=== PATIENT | female | born 1945 | race Caucasian/White ===

== ENCOUNTER 2020-10-24 09:00 | Emergency (ER) | payer MEDICARE, BC ==
[~2020-10-24] VITALS: Ht 167.6 cm; Wt 82.0 kg
--- NOTE | 2020-10-24 09:31 | PHYS DOC ---
Past History Past Medical History: Hypothyroid Past Surgical History: Hysterectomy, Other Additional Past Surgical Histo: LEFT FOOT Alcohol Use: None General Adult EDM: Chief Complaint: CHEST PAIN HPI: HPI: Patient is a 75-year-old female coming in for substernal chest pain that she describes as burning. Says the pain started this morning and woke her from sleep about 1:30 AM, patient vomited several times that was nonbloody nonbilious. Says the pain is improving now but worse with taking a deep breath. His pain does not radiate and is not taking thing for the pain. Is she had a headache last night before she went to bed but denies any headache now. Denies any fevers or diarrhea. Denies any past medical history, has family history of heart disease in several numbers. States she just moved here from [facility] 1 month ago and has had some nonproductive cough and difficulty breathing that she attributes to the climate and dryer air. Review of Systems: Review of Systems: All other systems within normal limits except for as noted in the HPI Allergies: Allergies: Allergies Coded Allergies Type Severity Reaction Last Updated Verified No Known Drug Allergies 10/24/20 No Physical Exam: PE: Constitutional: Well developed, well nourished, no acute distress, non-toxic appearance. [] HENT: Normocephalic, atraumatic, bilateral external ears normal, nose normal. [] Eyes: PERRLA, conjunctiva normal, no discharge. [] Neck: No rigidity, supple, no stridor. [] Cardiovascular: Regular rate and rhythm, brisk cap refill, symmetric upper extremity pulses, no murmurs or gallops [] Lungs & Thorax: Non labored symmetric respirations, no tachypnea or respiratory distress, lungs clear to auscultation [] Abdomen: Soft, nondistended, no tenderness or guarding. Skin: Warm, dry, no erythema, no rash. [] Back: Unremarkable Extremities: No deformities, range of motion grossly intact, no lower extremity edema [] Neurologic: Alert and oriented X 3, no focal deficits noted. [] Psychologic: Affect normal, judgement normal, mood normal. [] Current Patient Data: Vital Signs: Vital Signs Date Time Temp Pulse Resp B/P (MAP) Pulse Ox O2 Delivery O2 Flow Rate FiO2 10/24/20 09:15 99.0 101 16 161/91 (114) 97 EKG: EKG: Normal sinus rhythm, heart rate 90 bpm, left axis deviation, left bundle branch block, no ST elevation or depression. [] Radiology/Procedures: Radiology/Procedures: PA and lateral chest. HISTORY: Chest pain PA and lateral views were taken of the chest. Heart is normal in size. There is no pleural effusion. Lungs are free of infiltrates. There are calcified breast implants. There is mild linear scarring or atelectasis in the right upper lung field just above the minor fissure. There is mild scoliosis. IMPRESSION: 1. Mild linear scarring or atelectasis without other infiltrates. [] Heart Score: HEART Score for Chest Pain: HEART Score for Chest Pain Response (Comments) Value History Slighlty/Non-Suspicious 0 ECG Nonspecific Repolarizatio 1 Age > 65 2 Risk Factors No Risk Factors 0 Troponin < Normal Limit 0 Total 3 Risk Factors: Risk Factors: DM, Current or recent (<one month) smoker, HTN, HLP, family history of CAD, obesity. Risk Scores: Score 0 - 3: 2.5% MACE over next 6 weeks - Discharge Home Score 4 - 6: 20.3% MACE over next 6 weeks - Admit for Clinical Observation Score 7 - 10: 72.7% MACE over next 6 weeks - Early Invasive Strategies Course & Med Decision Making: Course & Med Decision Making Pertinent Labs and Imaging studies reviewed. (See chart for details) Symptoms consistent with GERD and reflux likely secondary to the vomiting. Patient did state that she ate just prior to going to bed. Patient declines an acids. Advised patient to picker tender [id number] antacids if symptoms persist. [] Dragon Disclaimer: Dragon Disclaimer: This electronic medical record was generated, in whole or in part, using a voice recognition dictation system. Departure Departure: Impression: Primary Impression: Gastric reflux Additional Impression: Chest pain Disposition: 01 DC HOME SELF CARE/HOMELESS Condition: STABLE Referrals: ESTER MARS MD (PCP) Patient Instructions: Diet for Gastroesophageal Reflux Disease, Adult ELIAS GOODMAN MD Oct 24, 2020 09:31
--- NOTE | 2020-10-24 10:06 | RAD ---
PA and lateral chest. HISTORY: Chest pain PA and lateral views were taken of the chest. Heart is normal in size. There is no pleural effusion. Lungs are free of infiltrates. There are calcified breast implants. There is mild linear scarring or atelectasis in the right upper lung field just above the minor fissure. There is mild scoliosis. IMPRESSION: 1. Mild linear scarring or atelectasis without other infiltrates. Electronically signed by: Conor Crespo MD (10/24/2020 10:04 AM) [id number]
[2020-10-24 10:13] LABS: BASO # 0.1 x10^3/uL (0.0-0.2); BASO % 1 % (0-3); EOS # 0.1 x10^3/uL (0.0-0.7); EOS % 1 % (0-3); HEMATOCRIT 42.1 % (36.0-47.0); HEMOGLOBIN 13.6 g/dL (12.0-15.5); LYMPH # 3.1 x10^3/uL (1.0-4.8); LYMPH % 24 % (24-48); MEAN CORPUSCULAR HEMOGLOBIN 29 pg (25-35); MEAN CORPUSCULAR HGB CONC 32 g/dL (31-37); MEAN CORPUSCULAR VOLUME 89 fL (79-100); MONO # 1.2 x10^3/uL (0.0-1.1); MONO % 9 % (0-9); NEUT # 8.6 x10^3uL (1.8-7.7); NEUT % 66 % (31-73); PLATELET COUNT 247 x10^3/uL (140-400); RED BLOOD COUNT 4.74 x10^6/uL (3.50-5.40)
[2020-10-24 10:22] LABS: CALCIUM 8.7 mg/dL (8.5-10.1); CREATININE 0.9 mg/dL (0.6-1.0); GFR 61.2; POTASSIUM 4.1 mmol/L (3.5-5.1)
[2020-10-24 10:37] LABS: ALBUMIN 3.9 g/dL (3.4-5.0); ALBUMIN/GLOBULIN RATIO 1.1 (1.0-1.7); TOTAL BILIRUBIN 0.6 mg/dL (0.2-1.0); TOTAL PROTEIN 7.6 g/dL (6.4-8.2)
[2020-10-24 10:46] LABS: BACTERIA,URINE 0 /HPF (0-FEW); BILIRUBIN,URINE NEG (NEG); CLARITY,URINE CLEAR; COLOR,URINE YELLOW; GLUCOSE,URINE NEG (NEG); NITRITE,URINE NEG (NEG); SQUAMOUS EPITHELIAL CELL,UR FEW /LPF; UROBILINOGEN,URINE 0.2 mg/dL (0.2 mg/dL); WBC,URINE OCC /HPF (0-4)
[2020-10-24 12:13] VITALS: BP 135/84
--- NOTE | 2020-10-25 06:40 | EKG ---
[address] [address] Test Date: 2020-10-24 Test Time: 09:18:29 Pat Name: SHAYY MELENDEZ Department: Room: Gender: F Housing [employer] Judge: : [id number] Requested By: ELIAS GOODMAN Order Number: [id number] Reading MD: Geovanny Andrade Measurements Intervals [place] Rate: 93 P: 22 KS: 160 QRS: -20 QRSD: 126 T: 116 QT: 400 QTc: 500 Interpretive Statements SINUS RHYTHM LEFTWARD AXIS LEFT BUNDLE BRANCH BLOCK ABNORMAL ECG RI6.02 No previous ECG available for comparison Electronically Signed On 10-25-2020 9:05:56 RN CAMP by Geovanny Andrade
== END 2020-10-24 12:15 | disposition home or self-care (01) ==
LOC: ER 09:00
DX: K21.9 Gastro-esophageal reflux disease without esophagitis (principal); R07.2 Precordial pain; E03.9 Hypothyroidism, unspecified; Z90.710 Acquired absence of both cervix and uterus
CPT/HCPCS: 36415; 71046; 80053; 81001; 83690; 84484; 85025; 85379; 93005; 99284; 99285

== ENCOUNTER 2021-07-21 22:12 | Emergency (ER) | payer MEDICARE, BC ==
[~2021-07-21] VITALS: Ht 167.6 cm; Wt 82.0 kg
--- NOTE | 2021-07-21 22:30 | PHYS DOC ---
Past History Past Medical History: Hypothyroid Past Surgical History: Hysterectomy, Other Additional Past Surgical Histo: LEFT FOOT Alcohol Use: None General Adult EDM: Chief Complaint: NOSEBLEED HPI: HPI: ".. I woke up with this nose bleed.. more here on Rt..." .. " It will not stop...".. " The last time I had a nose bleed.. 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 Patient denies any previous history of coagulopathy. No history of recent trauma. No history of upper respiratory infection. Patient does take a daily aspirin. Patient does have a past medical history of hypothyroidism,. Patient has had previous hysterectomy and left foot surgery. No recent travel. No specific ill contacts. Normally healthy. Patient reportedly up-to-date vaccinations including tetanus. Patient has copious amounts of anterior nasal bleeding but tickly on right [place] area. Does have postnasal drainage of blood with a large clot hanging and posterior pharynx. Does appear to have some decelerated hypertension. Patient no longer takes blood pressure meds states she was taken off of it because she did not need them anymore. P patient normally follows with Dr. Oden. Review of Systems: Review of Systems: Constitutional: Denies fever or chills Eyes: Denies change in visual acuity HENT: Denies nasal congestion or sore throat. The patient complains of epistaxis Respiratory: Denies cough or shortness of breath Cardiovascular: Denies chest pain or edema GI: Denies abdominal pain, nausea, vomiting, bloody stools or diarrhea : Denies dysuria Musculoskeletal: Denies back pain or joint pain Integument: Denies rash Neurologic: Denies headache, focal weakness or sensory changes Endocrine: Denies polyuria or polydipsia Lymphatic: Denies swollen glands Psychiatric: Denies depression or anxiety Family History: Family History: Noncontributory to presentation Current Medications: Current Meds: See nursing for home meds Allergies: Allergies: Allergies Coded Allergies Type Severity Reaction Last Updated Verified No Known Drug Allergies 10/24/20 No Physical Exam: PE: Constitutional: oin acute distress, non-toxic appearance. [] HENT: Normocephalic, atraumatic, bilateral external ears normal, oropharynx moist, posterior pharyngeal drainage of blood and clots, no oral exudates, nose has active bleeding from the [place] area of the right naris Eyes: PERRLA, EOMI, conjunctiva normal, no discharge. [] Neck: Normal range of motion, no tenderness, supple, no stridor. [] Cardiovascular:Heart rate regular rhythm, no murmur [] MO slightly to the left. Lungs & Thorax: Bilateral breath sounds clear to auscultation [] Abdomen: Bowel sounds normal, soft, no tenderness, no masses, no pulsatile masses. Obese. Old surgery scars. Skin: Warm, dry, no erythema, no rash. No petechiae Back: No tenderness, no CVA tenderness. [] Extremities: No tenderness, no cyanosis, no clubbing, ROM intact, no edema. [] Neurologic: Alert and oriented X 3, normal motor function, normal sensory function, no focal deficits noted. [] Psychologic: Affect anxious, judgement normal, mood normal. [] EKG: EKG: [] Radiology/Procedures: Radiology/Procedures: [] Heart Score: C/O Chest Pain: N/A Risk Factors: Risk Factors: DM, Current or recent (<one month) smoker, HTN, HLP, family histo ry of CAD, obesity. Risk Scores: Score 0 - 3: 2.5% MACE over next 6 weeks - Discharge Home Score 4 - 6: 20.3% MACE over next 6 weeks - Admit for Clinical Observation Score 7 - 10: 72.7% MACE over next 6 weeks - Early Invasive Strategies Course & Med Decision Making: Course & Med Decision Making Pertinent Labs and Imaging studies reviewed. (See chart for details) Procedure note-right naris packing-patient clots were cleared by blowing. Then application of a 50-50 mixture of cocaine and Gunnar-Synephrine by MAD application device. Then application of Bactracin applied to both naris. Patient started on Keflex 500 mg which is to continue 3 times a day. Placed a nasal packing unit with approximately 3 cc of air in the balloon. Application of nasal packing in right naris did seem to stop posterior nasal bleeding down her pharyn x. Patient did receive some clonidine 0.2. Patient to leave packing in for the next 3 days. After 3 days remove it. Patient take Keflex 500 mg 3 times a day. Patient to follow-up with Dr. Oden. Reoccurrence of bleeding will need labs and possible follow-up with ENT. Patient encouraged follow-up for elevated blood pressure. Wear the clonidine patch until follow-up. Return if any concerns. If she develops hypotension to pull off the clonidine patch. Patient advised not to blow her nose. 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 Patient must hold aspirin for the next 3 days. Impression: 1. Epistaxis 2. Accelerated hypertension [] Dragon Disclaimer: Dragdeborah Disclaimer: This electronic medical record was generated, in whole or in part, using a voice recognition dictation system. Departure Departure: Referrals: ESTER ODEN MD (PCP) Scripts Cephalexin (KEFLEX) 500 Mg Capsule 1 CAP PO TID for nasal packing, #30 CAP Prov: MARISA CHAPMAN MD 07/22/21 Jarett Disclaimer This chart was dictated in whole or in part using Voice Recognition software in a busy, high-work load, and often noisy Emergency Department environment. It may contain unintended and wholly unrecognized errors or omissions. MARISA CHAPMAN MD Jul 21, 2021 22:30
[2021-07-21] MEDS ORDERED: cloNIDine TTS-2 1 PATCH PATCH TD ONE (23:00)
[2021-07-21] MEDS ORDERED: PHENYLEPHRINE 1% NASAL DROP 30ML BOTTLE. NS ONE (23:00)
[2021-07-21] MEDS ORDERED: COCAINE 4% TOPICAL SOLUTION. TP ONE (23:00)
[2021-07-21] MEDS ORDERED: BACITRACIN ZINC TOPICAL OINT PACKET. TP ONE (23:00)
[2021-07-21] MEDS ORDERED: CEPHALEXIN 250 MG CAPSULE PO ONE (23:00)
[2021-07-21] MEDS ORDERED: cloNIDine HCL 0.1 MG TABLET PO ONE (23:00)
[2021-07-22 00:21] VITALS: BP 135/83
[2021-07-22] MEDS ORDERED: CEPH500C PO (00:25)
[2021-07-22] MEDS ORDERED: cloNIDine HCL 0.1 MG TABLET PO ONE (00:30)
== END 2021-07-22 00:33 | disposition home or self-care (01) ==
LOC: ER 22:12
DX: R04.0 Epistaxis (principal); I10 Essential (primary) hypertension; E03.9 Hypothyroidism, unspecified
CPT/HCPCS: 30905; 99284

== ENCOUNTER 2021-08-01 12:52 | Emergency (ER) | payer MEDICARE, BC ==
[~2021-08-01] VITALS: Ht 167.6 cm; Wt 85.0 kg
[~2021-08-01 12:52] MED LIST: CEPH500C PO
--- NOTE | 2021-08-01 13:33 | PHYS DOC ---
Past History Past Medical History: Hypothyroid Past Surgical History: Hysterectomy, Other Additional Past Surgical Histo: LEFT FOOT Alcohol Use: None Adult General HPI HPI Patient is a 76-year-old female presenting for nosebleed. Patient was here 11 days ago for same complaint. No history of trauma, coagulopathy, recent infection or any anticoagulants beyond a daily aspirin. As mentioned, she was here 11 days ago for same complaint and was found to have high blood pressure, intranasal medications were applied and she ultimately had nasal packing placed with close outpatient follow-up. Patient reports she saw her primary care physician who ultimately performed comprehensive work-up that was nonconcerning, packing was removed without issue, her blood pressure on PCP follow-up was unremarkable. Nonetheless, patient reports today while at work she started experiencing a nosebleed. Instead of waiting and trying to provide self-care, she got concerned and immediately presented to our ER for evaluation. Patient reports applying direct pressure while driving to ER and on arrival, all bleeding is stopped. She does disclose that she recently moved here in August 2020 from [place] and admits she has had chronic allergy issues. She suspects allergies and low humidity to be because of her current nasal bleeds Review of Systems Review of Systems Fourteen body systems of review of systems have been reviewed. See HPI for pertinent positives and negative responses, other nuno all other systems are negative, non-pertinent or non-contributory Allergies Allergies Allergies Coded Allergies Type Severity Reaction Last Updated Verified No Known Drug Allergies 10/24/20 No Physical Exam Physical Exam Constitutional: Well developed, well nourished, no acute distress, non-toxic appearance. HENT: Normocephalic, atraumatic, bilateral external ears normal, oropharynx moist, no oral exudates, nose normal. Bilateral turbinates unremarkable. Dry residual blood present in anterior area of right nare Eyes: PERRLA, EOMI, conjunctiva normal, no discharge. Neck: Normal range of motion, no tenderness, supple, no stridor. Cardiovascular: Heart rate regular, sinus rhythm, no murmurs rubs or gallops Lungs & Thorax: Bilateral breath sounds clear to auscultation Abdomen: Bowel sounds normal, soft, no tenderness, no masses, no pulsatile masses. Nonsurgical abdomen, no peritoneal signs Skin: Warm, dry, no erythema, no rash. Back: No tenderness, no CVA tenderness. Extremities: No tenderness, no cyanosis, no clubbing, ROM intact, no edema. Neurologic: Alert and oriented X 3, grossly normal motor & sensory function, no focal deficits noted. Psychologic: Affect normal, judgement normal, mood normal. Current Patient Data Vital Signs Vital Signs Date Time Temp Pulse Resp B/P (MAP) Pulse Ox O2 Delivery O2 Flow Rate FiO2 08/01/21 13:38 98.0 82 18 199/109 (139) 97 Room Air Vital Signs Date Time Temp Pulse Resp B/P (MAP) Pulse Ox O2 Delivery O2 Flow Rate FiO2 08/01/21 14:53 74 18 161/100 (120) 97 Room Air 08/01/21 13:38 98.0 EKG EKG [] Radiology/Procedures Radiology/Procedures [] Heart Score C/O Chest Pain: No Risk Factors: Risk Factors: DM, Current or recent (<one month) smoker, HTN, HLP, family history of CAD, obesity. Risk Scores: Risk Factors: DM, Current or recent (<one month) smoker, HTN, HLP, family history of CAD, obesity. Course & Med Decision Making Course & Med Decision Making Airway patent, breathing unlabored, vitals obtained concerning for hypertension only in an asymptomatic patient HPI and physical exam obtained nonconcerning for any emergent or surgical issues. I question etiology of patient's recurrent nosebleeds to allergies which she is not being treated for versus dry nares versus hypertension No active bleeding at present, no indication for further intervention. Patient had comprehensive diagnostic work-up performed last visit, I see little indica tion to repeat today Patient does not have blood pressure cuff at home, I advised her to obtain 1 and keep dedicated blood pressure log to review with outpatient primary care physician given her otherwise normal readings outside of ER setting Also advised her to start taking a daily antihistamine and using nasal saline in attempt to moisten her nares. I discussed consultation with ENT and/or an training program assistant might be indicated as she has seen both of these specialists in the past for similar issues Strict return precautions discussed and understood by patient, all questions and concerns addressed prior to ER departure Dragon Disclaimer Dragon Disclaimer This electronic medical record was generated, in whole or in part, using a voice recognition dictation system. Departure Departure: Impression: Primary Impression: Nosebleed Additional Impressions: Allergies Blood pressure elevated without history of HTN Disposition: HOME / SELF CARE / HOMELESS Condition: STABLE Referrals: ESTER MARS MD (PCP) Patient Instructions: Nose Drops, Saline, [id number], Nosebleed Additional Instructions: As discussed prior to ER departure, you were hypertensive on evaluation without official diagnosis of high blood pressure. It is recommended you get a blood pressure cuff and take numerous readings throughout the day and keep a log for review with your primary care physician as outpatient initiation of an antihy pertensive medication might be indicated. Your remaining vital signs and physical exam were nonconcerning for any emergent or surgical issues. Your ongoing/recurrent nosebleeds are likely due to dry nares. Etiology of this is suspected to be allergies and/or dry nonhumidified air in nature since he moved to our region. Please take an allergy pill such as Zyrtec, Claritin, Maritza or other nondecongestant second-generation antihistamine for your allergies. In addition, please use days on nasal saline or other humidifier to help increase the moisture of your nose is a dry nose will predispose you to nosebleeds. I have prescribed you Afrin which is a nasal spray which you should use during acute nosebleeds. If your nosebleed comes back, please pinch the bridge of your nose tightly and hold for 15 minutes. Reassess and if still bleeding, blow your nose fully and then take 2 to 3 sprays of Afrin in suspected nare which is bleeding and repeat holding for 15 minutes. If on repeat evaluation you are still experiencing bleeding please come into the ER for evaluation. Otherwise, there are no further indications for diagnostic work-up and/or need for intervention while in ER setting here today. Please call your primary care physician as mentioned above to review need for close outpatient ENT and training program assistant referrals and repeat follow-up on your blood pressure. If any concerning signs or symptoms please do not hesitate to come back for repeat evaluation. It was a pleasure to take care of you and I wish you the best going forward Scripts Oxymetazoline Hcl (NASAL SPRAY EXTRA MOISTURIZING) 30 Ml [place] 30 ML NS TID for nose bleed, #1 SPRAY Prov: AUDRA ARROYO DO 08/01/21 Problem Qualifiers AUDRA ARROYO DO Aug 01, 2021 13:33
[2021-08-01 14:53] VITALS: BP 161/100
[2021-08-01] MEDS ORDERED: OXYM30SP19 NS (14:53)
== END 2021-08-01 15:10 | disposition home or self-care (01) ==
LOC: ER 12:52
DX: R04.0 Epistaxis (principal); R03.0 Elevated blood-pressure reading, without diagnosis of hypertension; E03.9 Hypothyroidism, unspecified
CPT/HCPCS: 99282